=== PATIENT | male | born 1965 | race Hispanic/Latino ===

== ENCOUNTER 2017-06-01 06:22 | Observation (INO) | payer OTHER ==
[2017-05-25 12:01] VITALS: BMI 26.4
[2017-06-01] MEDS ORDERED: MethylPREDNISolone Depo 40 mg/ml Inj ONE (07:11)
[2017-06-01] MEDS ORDERED: Bupivacaine 0.5% Inj(30mL) ONE (07:11)
[2017-06-01] MEDS ORDERED: Absorbable Gelatin Sponge Size 100 ONE (07:12)
[2017-06-01] MEDS ORDERED: Thrombin Topical 5,000 Int Units Spray Kit ONE (07:12)
[2017-06-01 07:14] LABS: BLOOD UREA NITROGEN 12 mg/dl (9-20); CALCIUM 9.8 mg/dL (8.4-10.2); GFR AFRICAN-AMERICAN > 60; GFR NON-AFRICAN AMERICAN > 60
[2017-06-01] MEDS ORDERED: Propofol 10 mg/ml Inj (20 ML) ONE (07:15)
[2017-06-01] MEDS ORDERED: Lidocaine 4% (Laryng-O-Jet) Kit MM ONE (07:15)
[2017-06-01] MEDS ORDERED: Midazolam 2 MG/2 ML VIAL ONE (07:15)
[2017-06-01] MEDS ORDERED: Succinylcholine 200 mg/10 ml Inj IV ONE (07:15)
[2017-06-01] MEDS ORDERED: Lactated Ringer's 1,000 ML IV ONE ×3 (07:15→15:50)
[2017-06-01] MEDS ORDERED: Lidocaine 1% 5ml Abboject IV ONE (07:16)
[2017-06-01] MEDS ORDERED: Propofol 10 mg/ml 3,000 MG/300 ML VIAL ONE (07:20)
[2017-06-01] MEDS ORDERED: Remifentanil 2 MG PDS IV ONE ×2 (07:22→11:44)
[2017-06-01] MEDS ORDERED: Phenylephrine 10 mg/ml Inj ONE ×2 (07:31→15:28)
[2017-06-01] MEDS ORDERED: Sodium Chloride 0.9% 1,000 ML IV ONE (09:00)
[2017-06-01] MEDS ORDERED: Rocuronium 10 mg/ml (5 ml) ONE ×2 (09:24→09:27)
[2017-06-01] MEDS ORDERED: ePHEDrine 50 mg/ml Inj ONE (09:26)
[2017-06-01] MEDS ORDERED: Liquid Adhesive TOP ONE (10:17)
[2017-06-01] MEDS ORDERED: Sevoflurane - Inhalation Anesthetic Liq (250 ml) ONE (13:48)
[2017-06-01] MEDS ORDERED: Vancomycin 1 g Inj IVPB ONE ×2 (15:10)
[2017-06-01] MEDS ORDERED: HYDROmorphone 0.5 mg/0.5 ml ISec ONE ×2 (15:53→18:07)
[2017-06-01] MEDS: HYDROmorphone 0.5 mg/0.5 ml ISec IVP PRN ×14 (15:53→19:05)
[2017-06-01] MEDS ORDERED: DiphenhydrAMINE 50 mg/ml Inj IVP PRN (15:58)
[2017-06-01] MEDS ORDERED: Dexamethasone 4 mg/1 ml IVP PRN (15:58)
--- NOTE | 2017-06-01 16:38 | CP.PCM.HP ---
History of Present Illness - History of Present Illness History of Present Illness: 51 yo male with no significant PMH had anterior and posterior fusion of L4-L5 and L5-S1 today by Dr Servin after failing conservative management of Lumbar Spinal Stenosis/Spondylosis. Patient had been in pain since 7 months ago after a piano fell on him. Present on Admission - Present on Admission Any Indicators Present on Admission: No History of DVT/PE: No History of Uncontrolled Diabetes: No Urinary Catheter: No Decubitus Ulcer Present: No Review of Systems - Review of Systems All systems: reviewed and no additional remarkable complaints except (aside from those mentioned above, 12 point system review were negative by me) Past Patient History - Tetanus Immunizations Tetanus Immunization: Unknown - Past Medical History & Family History Past Medical History?: Yes - Past Social History Smoking Status: Never Smoked - CARDIAC Hx Cardiac Disorders: No - PULMONARY Hx Respiratory Disorders: No - NEUROLOGICAL Hx Neurological Disorder: No - HEENT Hx HEENT Problems: No - RENAL Hx Chronic Kidney Disease: No - ENDOCRINE/METABOLIC Hx Endocrine Disorders: No - HEMATOLOGICAL/ONCOLOGICAL Hx Blood Disorders: No - INTEGUMENTARY Hx Dermatological Problems: No - MUSCULOSKELETAL/RHEUMATOLOGICAL Hx Musculoskeletal Disorders: Yes Hx Spinal Stenosis: Yes - GASTROINTESTINAL Hx Gastrointestinal Disorders: Yes Hx Gastritis: Yes - GENITOURINARY/GYNECOLOGICAL Hx Genitourinary Disorders: No - PSYCHIATRIC Hx Psychophysiologic Disorder: No Hx Depression: Yes - SURGICAL HISTORY Hx Surgeries: No - ANESTHESIA Hx Anesthesia: No Hx Anesthesia Reactions: No Hx Malignant Hyperthermia: No Has any member of the family had a problem w/ anesthesia?: No Meds Allergies/Adverse Reactions: Allergies Allergy/AdvReac Type Severity Reaction Status Date / Time No Known Allergies Allergy Verified 06/01/17 07:45 Physical Exam - Constitutional Appears: In Acute Distress (secondary to pain on surgical site) - Head Exam Head Exam: ATRAUMATIC - Eye Exam Eye Exam: absent: Scleral icterus - ENT Exam ENT Exam: Mucous Membranes Moist - Respiratory Exam Respiratory Exam: absent: Rales, Rhonchi, Wheezes, Respiratory Distress - Cardiovascular Exam Cardiovascular Exam: REGULAR RHYTHM, +S1, +S2 - GI/Abdominal Exam GI & Abdominal Exam: Soft. absent: Tenderness - Rectal Exam Rectal Exam: Deferred - Neurological Exam Neurological exam: Alert, Oriented x3 - Psychiatric Exam Psychiatric exam: Agitated, Anxious - Skin Skin Exam: Dry, Intact Results - Vital Signs Recent Vital Signs: Last Vital Signs Temp 98.6 F 06/01/17 07:00 Pulse 62 06/01/17 07:30 Resp 18 06/01/17 07:00 BP 111/63 06/01/17 07:00 Pulse Ox 100 06/01/17 07:00 - Labs Result Diagrams: 06/01/17 06:53 Labs: Laboratory Results - last 24 hr 06/01/17 06/01/17 06/01/17 06:43 06:43 06:53 Sodium 147 Potassium 5.4 H Chloride 102 Carbon Dioxide 32 H Anion Gap 18 BUN 12 Creatinine 0.6 L Est GFR ( Amer) > 60 Est GFR (Non-Af Amer) > 60 Random Glucose 96 Calcium 9.8 Blood Type O POSITIVE Blood Type Confirm O POSITIVE Antibody Screen Negative Crossmatch See Detail BBK History Checked No verified bt Assessment & Plan - Assessment and Plan (Free Text) Plan: 51 yo male with no significant PMH had anterior and posterior fusion of L4-L5 and L5-S1 today by Dr Servin after failing conservative management of Lumbar Spinal Stenosis/Spondylosis. Patient had been in pain since 7 months ago after a piano fell on him. 1. Post Anterior/Posterior Lumbar Fusion L4-L5, L5-S1 pain management with Dilaudid via [employer] Ancef 2gm IVPB q 8hrs x 2 [address] Servin will follow patient on the floor 2. DVT prophylaxis avoid anticoagulant and antiplatelets venodyne boots while in bed
[2017-06-01] MEDS ORDERED: AMPHETAMINE SALT COMBINATION 10 MG TAB PO SCH (17:00)
--- NOTE | 2017-06-01 18:37 | RAD ---
PROCEDURE: Intraoperative Fluoroscopy. HISTORY: LUMBAR FUSION FINDINGS: Fluoroscopic assistance was provided for lumbar spinal fusion. Please refer to the operative report from [facility]ijo. 26.1 seconds of fluoroscopy time was utilized with a cumulative radiation dose is 17.10 mGy.
[2017-06-01] MEDS ORDERED: Morphine 30 mg Immediate Release Tab PO PRN (18:51)
[2017-06-01] MEDS ORDERED: Sod Polystyrene Sulf 15 gm/60 ml Susp PO ONE (19:12)
[2017-06-02 00:06] VITALS: RESP 18
[2017-06-02] MEDS: Sodium Chloride 0.9% 1,000 ML IV SCH ×2 (01:41→03:29)
[2017-06-02 07:08] LABS: BASO % 0.1 % (0.0-2.0); EOS % 0.1 % (0.0-4.0); HEMOGLOBIN 13.6 g/dL (12.0-18.0); LYMPH # 1.2 K/uL (1.0-4.3); LYMPH % 8.7 % (20.0-40.0); MEAN CELL VOLUME 96.9 fl (80.0-94.0); MEAN CORPUSCULAR HEMOGLOBIN 31.9 pg (27.0-31.0); MEAN CORPUSCULAR HGB CONC 32.9 g/dL (33.0-37.0); MEAN PLATELET VOLUME 7.6 fl (7.2-11.7); MONO # 1.4 K/uL (0.0-0.8); MONO % 10.4 % (0.0-10.0); NEUT # 10.9 K/uL (1.8-7.0); NEUT % 80.7 % (50.0-75.0); NRBC % 0.1 % (0.0-0.0); PLATELET COUNT 296 K/uL (130-400); RBC 4.27 Mil/uL (4.40-5.90); WHITE BLOOD COUNT 13.5 K/uL (4.8-10.8)
[2017-06-02 07:36] LABS: BLOOD UREA NITROGEN 10 mg/dl (9-20); CALCIUM 8.8 mg/dL (8.4-10.2); GFR AFRICAN-AMERICAN > 60; GFR NON-AFRICAN AMERICAN > 60
[2017-06-02 08:34] VITALS: BP 122/74; PULSE 89; TEMP 98.9; O2SAT 96
[2017-06-02 09:27] LABS: BANDS 2 % (0-2); BASOPHIL 1 % (0-2); LARGE PLATELETS PRESENT; LYMPHOCYTE 10 % (20-50); MONOCYTE 10 % (0-10); NEUTROPHIL 77 % (42-75); PLATELET ESTIMATE NORMAL (NORMAL); TOTAL CELLS COUNTED 100
--- NOTE | 2017-06-02 09:45 | CP.PCM.DIS ---
Provider - Provider Date of Admission: 06/01/17 16:46 Attending physician: Bart Douglass MD Primary care physician: Rosendo Servin MD Consults: Ortho : Dr Servin Time Spent in preparation of Discharge (in minutes): 35 Diagnosis - Discharge Diagnosis (1) Status post lumbar spinal fusion Status: Acute (2) Spinal stenosis of lumbar region with radiculopathy Status: Acute Hospital Course - Lab Results Lab Results: Most Recent Lab Values WBC 13.5 K/uL (4.8-10.8) H 06/02/17 06:15 RBC 4.27 Mil/uL (4.40-5.90) L 06/02/17 06:15 Hgb 13.6 g/dL (12.0-18.0) 06/02/17 06:15 Hct 41.4 % (35.0-51.0) 06/02/17 06:15 MCV 96.9 fl (80.0-94.0) H 06/02/17 06:15 MCH 31.9 pg (27.0-31.0) H 06/02/17 06:15 MCHC 32.9 g/dL (33.0-37.0) L 06/02/17 06:15 RDW 13.0 % (11.5-14.5) 06/02/17 06:15 Plt Count 296 K/uL (130-400) 06/02/17 06:15 MPV 7.6 fl (7.2-11.7) 06/02/17 06:15 Neut % (Auto) 80.7 % (50.0-75.0) H 06/02/17 06:15 Lymph % (Auto) 8.7 % (20.0-40.0) L 06/02/17 06:15 [place] % (Auto) 10.4 % (0.0-10.0) H 06/02/17 06:15 Eos % (Auto) 0.1 % (0.0-4.0) 06/02/17 06:15 Baso % (Auto) 0.1 % (0.0-2.0) 06/02/17 06:15 Neut # (Auto) 10.9 K/uL (1.8-7.0) H 06/02/17 06:15 Lymph # (Auto) 1.2 K/uL (1.0-4.3) 06/02/17 06:15 [place] # (Auto) 1.4 K/uL (0.0-0.8) H 06/02/17 06:15 Eos # (Auto) 0.0 K/uL (0.0-0.7) 06/02/17 06:15 Baso # (Auto) 0.0 K/uL (0.0-0.2) 06/02/17 06:15 Neutrophils % (Manual) 77 % (42-75) H 06/02/17 06:15 Band Neutrophils % 2 % (0-2) 06/02/17 06:15 Lymphocytes % (Manual) 10 % (20-50) L 06/02/17 06:15 Monocytes % (Manual) 10 % (0-10) 06/02/17 06:15 Basophils % (Manual) 1 % (0-2) 06/02/17 06:15 Platelet Estimate Normal (NORMAL) 06/02/17 06:15 Large Platelets Present 06/02/17 06:15 Sodium 143 mmol/l (132-148) 06/02/17 06:15 Potassium 4.2 MMOL/L (3.6-5.0) 06/02/17 06:15 Chloride 102 mmol/L (98-107) 06/02/17 06:15 Carbon Dioxide 27 mmol/L (22-30) 06/02/17 06:15 Anion Gap 18 (10-20) 06/02/17 06:15 BUN 10 mg/dl (9-20) 06/02/17 06:15 Creatinine 0.7 mg/dl (0.8-1.5) L 06/02/17 06:15 Est GFR ( Amer) > 60 06/02/17 06:15 Est GFR (Non-Af Amer) > 60 06/02/17 06:15 Random Glucose 117 mg/dL (75-110) H 06/02/17 06:15 Calcium 8.8 mg/dL (8.4-10.2) 06/02/17 06:15 Blood Type O POSITIVE 06/01/17 06:43 Blood Type Confirm O POSITIVE 06/01/17 06:43 Antibody Screen Negative 06/01/17 06:43 Crossmatch See Detail 06/01/17 06:43 BBK History Checked No verified bt 06/01/17 06:43 - Hospital Course Hospital Course: Pt is a 51 y/o gent with hx of ADHD, Intractable LBP with Lumbar Radiculopathy , after a piano fell on him, was admitted for scheduled Spinal Surgery. He was admitted in Telemetry post op after an Anterior- Posterior Lumbar -Sacral Spinal Fusion surgery for close monitoring and Pain management. He was started on [employer] Dilaudid and did very well post op. PT was consulted and TLSO Brace ordered for pt. Pt did well and on Post Day 1 , he was able to get out of bed and ambulate. He refused to stay in the hospital and wanted to go home bec of recent in the family. He refused to wait for Dr Servin to come and eval him nor wait for his Brace. Dr Servin informed of this - and agreed to d/c pt , he will take care of getting Brace for pt. . Pt will ff up with Dr Servin as outpt autumn. Discharge Exam - Head Exam Head Exam: ATRAUMATIC, NORMAL INSPECTION, NORMOCEPHALIC - Eye Exam Eye Exam: EOMI, Normal appearance, PERRL Pupil Exam: NORMAL ACCOMODATION - ENT Exam ENT Exam: Mucous Membranes Moist, Normal External Ear Exam - Neck Exam Neck exam: Full Rom - Respiratory Exam Respiratory Exam: NORMAL BREATHING PATTERN. absent: Respiratory Distress - Cardiovascular Exam Cardiovascular Exam: REGULAR RHYTHM, +S1, +S2 - GI/Abdominal Exam GI & Abdominal Exam: Normal Bowel Sounds, Soft. absent: Tenderness - Extremities Exam Extremities exam: full ROM, normal capillary refill - Back Exam Back exam: absent: CVA tenderness (L), CVA tenderness (R) Additional comments: Surgical wound dressing intact and clean both anterior and posterior wound - Neurological Exam Neurological exam: Alert, CN II-XII Intact, Normal Gait, Oriented x3, Reflexes Normal - Psychiatric Exam Psychiatric exam: Normal Affect, Normal Mood - Skin Skin Exam: Dry, Normal Color, Warm Discharge Plan - Follow Up Plan Condition: GOOD Disposition: HOME/ ROUTINE Additional Instructions: ff up with Dr Servin early next wk Pt would need TLSO brace - Dr Servin's office will order this Avoid heavy lifting, bending Keep brace on when upright keep wound dry and clean Referrals: Rosendo Servin MD [Primary Care Provider] -
== END 2017-06-02 10:00 | disposition home or self-care (01) ==
LOC: H.OPSURG 06:22 → H.TEL 16:46 → INTOOBSV 16:46
DX: M48.061 Spinal stenosis, lumbar region without neurogenic claudication (principal); M54.16 Radiculopathy, lumbar region; F32.9 Major depressive disorder, single episode, unspecified; K29.70 Gastritis, unspecified, without bleeding; F90.9 Attention-deficit hyperactivity disorder, unspecified type; M47.9 Spondylosis, unspecified
CPT/HCPCS: 22633; 22634; 36415; 80048; 85025; 86850; 86900; 86920; 88305; G0378; J0330; J0690; J1030; J1100; J1170; J1885; J2250; J2274; J2370; J2704; J3010; J7040; J7120